=== PATIENT | male | born 1990 | race Two or more races ===

== ENCOUNTER 2021-10-29 19:55 | Inpatient (IN) | payer MEDICAID, OTHER ==
[~2021-10-29] VITALS: Ht 180.3 cm; Wt 95.9 kg
[2021-10-30] MEDS ORDERED: NAPR-1025 PO (00:07)
[2021-10-30 01:55] LABS: COVID AG,FIA SOURCE NASAL SWAB
[2021-10-30] MEDS ORDERED: LORazepam 1 MG TABLET PO ONE (02:00)
[2021-10-30 02:26] LABS: ANION GAP 8 mmol/L (8-16); CALCIUM, TOTAL 8.9 mg/dL (8.8-10.5); CARBON DIOXIDE 29 mmol/L (22-29); CHLORIDE 104 mmol/L (98-107); CREATININE 0.85 mg/dL (0.60-1.30); GLOMERULAR FILTR. RATE CALC > 60 mL/min (>60); GLUCOSE,RANDOM 123 mg/dL (70-110); SODIUM SERUM 141 mmol/L (136-145); UREA NITROGEN, BLOOD 6 mg/dL (7-18)
[2021-10-30] MEDS ORDERED: HALOPERIDOL 5 MG TABLET PO PRN (02:30)
[2021-10-30 02:32] LABS: ACETAMINOPHEN < 2 mcg/mL (10-30)
[2021-10-30 03:18] LABS: APPEARANCE,URINE CLEAR (CLEAR); BILIRUBIN,URINE NEGATIVE (NEGATIVE); GLUCOSE, URINE (UA) NEGATIVE (NEGATIVE); KETONES,URINE NEGATIVE (NEGATIVE); LEUKOCYTE ESTERASE ,URINE NEGATIVE (NEGATIVE); NITRATE,URINE NEGATIVE (NEGATIVE); OCCULT BLOOD,URINE NEGATIVE (NEGATIVE); PH,URINE 5.5 (5.0-8.0); PROTEIN,URINE TRACE mg/dL (NEGATIVE); SPECIFIC GRAVITIY, URINE 1.023 (1.003-1.030); UROBILINOGEN,URINE <=1.0 mg/dL (<=1.0)
[2021-10-30 03:25] LABS: AMPHET/METH SCREEN,URINE NEGATIVE (NEGATIVE); BARBITURATE SCREEN, URINE NEGATIVE (NEGATIVE); BENZODIAZEPINES SCREEN,URINE NEGATIVE (NEGATIVE); CANNABINOID SCREEN,URINE POSITIVE (NEGATIVE); COCAINE SCREEN,URINE NEGATIVE (NEGATIVE); METHADONE SCREEN, URINE NEGATIVE (NEGATIVE); OPIATE SCREEN,URINE NEGATIVE (NEGATIVE)
[2021-10-30 03:33] LABS: PHENCYCLIDINE SCREEN,URINE NEGATIVE (NEGATIVE)
[2021-10-30] MEDS: RisperiDONE 1 MG TABLET PO SCH (16:28)
[2021-10-30] MEDS ORDERED: MAGNESIUM HYDROXIDE SUSPENSION 30 ML UDCUP PO PRN (16:45)
[2021-10-30] MEDS ORDERED: MAG HYDROX/AL HYDROX/SIMETH ES 30 ML SUSPENSION UDCUP PO PRN (16:45)
[2021-10-30] MEDS ORDERED: PETROLATUM,WHITE 28 GM JELLY TP PRN (16:45)
[2021-10-30] MEDS ORDERED: LOPERAMIDE HCL 2 MG CAPSULE PO PRN (16:45)
[2021-10-30] MEDS ORDERED: IBUPROFEN 600 MG TABLET PO PRN (16:45)
[2021-10-30] MEDS ORDERED: CloNIDine HCL 0.1 MG TABLET PO PRN (16:45)
[2021-10-30] MEDS ORDERED: BENZOCAINE/MENTHOL LOZENGE PO PRN (16:45)
[2021-10-30] MEDS ORDERED: ACETAMINOPHEN 325 MG TABLET PO PRN (16:45)
[2021-10-30] MEDS ORDERED: BACITRACIN 28 GM OINTMENT TP PRN (16:45)
[2021-10-30] MEDS ORDERED: ALBUTEROL SULFATE HFA 90 MCG/PUFF 8 GM INHALER IH PRN (16:45)
[2021-10-30 16:47] VITALS: BP 136/83
[2021-10-30] MEDS: DIVALPROEX SODIUM 500 MG DR TABLET PO SCH (20:36)
[2021-10-30] MEDS: NAPROXEN 500 MG TABLET PO SCH (21:13)
[2021-10-31 01:34] VITALS: BP 130/82
[2021-10-31] MEDS: ZOLPIDEM TARTRATE 10 MG TABLET PO PRN ×2 (01:57→21:02)
[2021-10-31] MEDS: DIVALPROEX SODIUM 500 MG DR TABLET PO SCH ×2 (08:06→20:08)
[2021-10-31] MEDS: DOCUSATE SODIUM 100 MG CAPSULE PO SCH (08:06)
[2021-10-31] MEDS: RisperiDONE 1 MG TABLET PO SCH ×2 (08:06→16:18)
[2021-10-31] MEDS: OMEPRAZOLE 20 MG CAPSULE PO SCH (08:06)
[2021-10-31] MEDS: LORazepam 2 MG TABLET PO PRN (08:06)
[2021-10-31 08:10] VITALS: BP 107/69
[2021-10-31] MEDS: NAPROXEN 500 MG TABLET PO SCH ×2 (08:28→20:08)
[2021-10-31 16:06] VITALS: BP 135/83
[2021-11-01] MEDS: LORazepam 2 MG TABLET PO PRN ×2 (03:28→08:10)
[2021-11-01] MEDS: ONDANSETRON HCL 4 MG TABLET PO PRN (03:28)
[2021-11-01 03:58] VITALS: BP 116/72
[2021-11-01 08:04] VITALS: BP 137/80
[2021-11-01] MEDS: OMEPRAZOLE 20 MG CAPSULE PO SCH (08:10)
[2021-11-01] MEDS: DOCUSATE SODIUM 100 MG CAPSULE PO SCH (08:10)
[2021-11-01] MEDS: DIVALPROEX SODIUM 500 MG DR TABLET PO SCH ×2 (08:10→20:02)
[2021-11-01] MEDS: RisperiDONE 1 MG TABLET PO SCH ×2 (08:10→16:16)
[2021-11-01] MEDS: NAPROXEN 500 MG TABLET PO SCH ×2 (08:12→20:02)
[2021-11-01 16:05] VITALS: BP 111/69
[2021-11-01] MEDS: ZOLPIDEM TARTRATE 10 MG TABLET PO PRN (22:03)
[2021-11-02 03:23] VITALS: BP 127/75
[2021-11-02] MEDS: ONDANSETRON HCL 4 MG TABLET PO PRN (04:13)
[2021-11-02] MEDS ORDERED: DIVA-112 PO (06:05)
[2021-11-02] MEDS ORDERED: RISP1TAB48 PO (06:07)
== END 2021-11-02 10:13 | disposition home or self-care (01) | DRG 753 ==
LOC: EMS 20:01 → B3A 10-30 12:14
PROVIDERS: ADMIT Psychiatry & Neurology Psychiatry; ATTEND Psychiatry & Neurology Psychiatry
DX: F31.9 Bipolar disorder, unspecified (principal); F19.10 Other psychoactive substance abuse, uncomplicated; K59.00 Constipation, unspecified; F41.9 Anxiety disorder, unspecified; Z20.822 Contact with and (suspected) exposure to COVID-19; G47.00 Insomnia, unspecified; Z72.89 Other problems related to lifestyle; Z56.0 Unemployment, unspecified
CPT/HCPCS: 80048; 81003; 99285; G0481; Q0162